=== PATIENT | female | born 1940 | race Two or more races ===

== ENCOUNTER 2017-12-01 08:15 | Outpatient (CLI) | payer OTHER | END 2017-12-01 08:27 | disposition home or self-care (01) | LOC: MAMO-SONO 08:15 | DX: Z12.31 Encounter for screening mammogram for malignant neoplasm of breast (principal); Z87.898 Personal history of other specified conditions; E04.0 Nontoxic diffuse goiter ==

== ENCOUNTER → 2018-11-19 | Outpatient (CLI) | payer OTHER | END | disposition home or self-care (01) | LOC: MAMO-SONO 09:36 | DX: E04.8 Other specified nontoxic goiter (principal); E89.0 Postprocedural hypothyroidism; Z12.11 Encounter for screening for malignant neoplasm of colon; Z12.31 Encounter for screening mammogram for malignant neoplasm of breast; Z87.898 Personal history of other specified conditions ==

== ENCOUNTER 2021-03-15 07:43 | Outpatient (CLI) | payer OTHER | END 2021-03-15 07:56 | disposition home or self-care (01) | LOC: MAMO-SONO 07:43 | PROVIDERS: ATTEND Internal Medicine Endocrinology, Diabetes & Metabolism | DX: Z12.31 Encounter for screening mammogram for malignant neoplasm of breast (principal); Z87.898 Personal history of other specified conditions; N64.4 Mastodynia ==

== ENCOUNTER 2021-08-13 11:58 | Outpatient (CLI) | payer OTHER | END 2021-08-13 12:02 | disposition home or self-care (01) | LOC: SONOGRAMA 11:58 | PROVIDERS: ATTEND Surgery | DX: N60.11 Diffuse cystic mastopathy of right breast (principal); N60.12 Diffuse cystic mastopathy of left breast ==

== ENCOUNTER 2022-03-24 12:19 | Outpatient (CLI) | payer OTHER | END 2022-03-24 12:24 | disposition home or self-care (01) | LOC: MAMO-SONO 12:19 | PROVIDERS: ATTEND Surgery | DX: N60.11 Diffuse cystic mastopathy of right breast (principal); N60.12 Diffuse cystic mastopathy of left breast ==

== ENCOUNTER 2022-05-03 15:22 | Outpatient (CLI) | payer OTHER | END 2022-05-03 15:27 | disposition home or self-care (01) | LOC: RAD 15:22 | PROVIDERS: ATTEND Surgery | DX: S29.001A Unspecified injury of muscle and tendon of front wall of thorax, initial encounter (principal) ==

== ENCOUNTER 2023-03-27 08:38 | Outpatient (CLI) | payer OTHER | END 2023-03-27 08:41 | disposition home or self-care (01) | LOC: MAMO-SONO 08:38 | PROVIDERS: ATTEND Surgery | DX: N60.11 Diffuse cystic mastopathy of right breast (principal); N60.12 Diffuse cystic mastopathy of left breast; Z12.31 Encounter for screening mammogram for malignant neoplasm of breast ==

== ENCOUNTER 2024-06-24 10:29 | Outpatient (CLI) | payer OTHER | END 2024-06-24 10:36 | disposition home or self-care (01) | LOC: MAMO-SONO 10:29 | PROVIDERS: ATTEND Surgery | DX: N60.11 Diffuse cystic mastopathy of right breast (principal); N60.12 Diffuse cystic mastopathy of left breast; Z12.31 Encounter for screening mammogram for malignant neoplasm of breast ==